=== PATIENT | male | born 1960 | race Caucasian/White ===

== ENCOUNTER 2020-08-04 11:47 | Inpatient (IN) | payer OTHER ==
--- NOTE | 2020-08-04 12:02 | BHS.RME ---
Substance Use & Tx History - Substance Use History Alcohol Substance amount: 6 beers Frequency of use: Daily Substance route: Oral Date of Last Use: 08/04/20 Physical/Psych/Mental Status - Behavior Eye Contact: Normal - Cooperativeness Cooperativeness: Cooperative - Thinking Thought Processes: Tight, Logical, Goal Directed - Physical Health Problems Is patient presently having any pain?: No Does patient presently have any injuries (include location): No Does patient currently have a fever: No Is patient : No CIWA Nausea/Vomitin-No Nausea/No Vomiting Muscle Tremors: 1-None Visible, but [place] Anxiety: 0-No Anxiety, at Ease Agitation: 0-Normal Activity Paroxysmal Sweats: No Perspiration Orientation: 0-Oriented Tacttile Disturbances: 0-None Auditory Disturbances: 0-None Visual Disturbances: 0-None Headache: 0-None Present (not yet in withdrawals....drank this morning 6 beers, AMARILIS=.[id number]) CIWA-Ar Total Score: 1
[2020-08-04] MEDS ORDERED: LORazepam 1 MG TABLET PO PRN (13:28)
[2020-08-04] MEDS ORDERED: NICOTINE POLACRILEX 2 MG GUM BUC PRN (13:28)
[2020-08-04] MEDS ORDERED: ONDANSETRON *ODT* 4 MG TABLET SL PRN (13:28)
[2020-08-04] MEDS ORDERED: METHOCARBAMOL 500 MG TABLET PO PRN (13:28)
[2020-08-04] MEDS ORDERED: MAGNESIUM HYDROX 2400MG/30ML ORAL SUSPENSION 30 ML CUP PO PRN (13:28)
[2020-08-04] MEDS ORDERED: MAGNESIUM CITRATE 300 ML BOTTLE PO PRN (13:28)
[2020-08-04] MEDS ORDERED: MAG HYDROX/AL HYDROX/SIMETH 30 ML UNIT-DOSE CUP PO PRN (13:28)
[2020-08-04] MEDS ORDERED: MENTHOL/PHENOL 1 EACH UD MM PRN (13:28)
[2020-08-04] MEDS ORDERED: ACETAMINOPHEN 325 MG TABLET (FP) PO PRN ×2 (13:28)
[2020-08-04] MEDS ORDERED: BISMUTH SUBSALICYLATE 262 MG/15 ML BTL PO PRN (13:28)
[2020-08-04] MEDS ORDERED: IBUPROFEN 400 MG TABLET (FP) PO PRN (13:28)
--- NOTE | 2020-08-04 13:28 | HP ---
CIWA Score Nausea/Vomitin-No Nausea/No Vomiting Muscle Tremors: 1-None Visible, but [place] Anxiety: 0-No Anxiety, at Ease Agitation: 0-Normal Activity Paroxysmal Sweats: No Perspiration Orientation: 0-Oriented Tacttile Disturbances: 0-None Auditory Disturbances: 0-None Visual Disturbances: 0-None Headache: 0-None Present (not yet in withdrawals....drank this morning 6 beers, AMARILIS=.[id number]) CIWA-Ar Total Score: 1 - Admission Criteria [facility]ASAS Guidelines: Admission for Medically Managed Detox: Requires at least one of the followin. CIWA greater than 12 2. Seizures within the past 24 hours 3. Delirium tremens within the past 24 hours 4. Hallucinations within the past 24 hours 5. Acute intervention needed for co occurring medical disorder 6. Acute intervention needed for co occurring psychiatric disorder 7. Severe withdrawal that cannot be handled at a lower level of care (continued vomiting, continued diarrhea, abnormal vital signs) requiring intravenous medication and/or fluids 8. Admitting History and Physical - Admission Chief Complaint: Mr. Barbour is a 59 yo gentleman who presents to [facility] requesting admission. He has a history of alcohol use disorder. History of Present Illness: Mr. Barbour is a 59 yo gentleman who presents to [facility] requesting admission. He has a history of alcohol use disorder. Initially he was going to be placed in detox, however, after finding a AMARILIS of 0.101, a detox admission was deemed medically necessary. He initially stated that his last drink was one week ago and then admitted to drinking today. 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 Current level of intoxication obscures withdrawal symptoms. History Source: Patient Limitations to Obtaining History: No Limitations Admission ROS BHS - HPI Allergies/Adverse Reactions: Allergies Allergy/AdvReac Type Severity Reaction Status Date / Time Penicillins Allergy Severe Rash Verified 08/04/20 13:18 Exam Limitations: No Limitations - Ebola screening Have you traveled outside of the country in the last 21 days: No Have you been sick,other than usual withdrawal symptoms: No Do you have a fever: No - Review of Systems Constitutional: No Symptoms Reported EENT: reports: Blurred Vision (glasses to read) Respiratory: reports: No Symptoms reported Cardiac: reports: No Symptoms Reported GI: reports: No Symptoms Reported : reports: No Symptoms Reported Musculoskeletal: reports: Other (right tibial fracture 2 weeks ago, has a posterior mold and chloe wrap. Prior left ankle fracture with hardware, joint is fixed) Integumentary: reports: No Symptoms Reported Neuro: reports: No Symptoms reported Endocrine: reports: No Symptoms Reported Hematology: reports: No Symptoms Reported Psychiatric: reports: No Sypmtoms Reported Patient History - Smoking Cessation Smoking history: Current every day smoker Have you smoked in the past 12 months: Yes Hx Chewing Tobacco Use: No Initiated information on smoking cessation: Yes 'Breaking Loose' booklet given: 08/04/20 Admission Physical Exam [facility] - Vital Signs Vital Signs: BP 113/83, HR 102, RR 12, temp 97.5 UDS: MTD - Physical General Appearance: Yes: No Apparent Distress, Nourished, Appropriately Dressed HEENTM: Yes: EOMI, Hearing grossly Normal, Normocephalic, Normal Voice Respiratory: Yes: Lungs Clear, No Respiratory Distress, No Accessory Muscle Use Neck: Yes: Within Normal Limits, Supple Breast: Yes: Breast Exam Deferred Cardiology: Yes: Regular Rhythm, Regular Rate Abdominal: Yes: Normal Bowel Sounds, Non Tender, Flat, Soft Genitourinary: Yes: Other (deferred) Back: Yes: Normal Inspection Musculoskeletal: Yes: Other (steady with the use of a cane) Extremities: Yes: Normal Inspection (left ankle anterior scar, right leg in posterior mold to knee, wrapped in chloe bandage) Neurological: Yes: Alert, Normal Response Integumentary: Yes: Within Normal Limits - Diagnostic (1) Alcohol intoxication Current Visit: Yes Status: Acute (2) Methadone maintenance therapy patient Current Visit: Yes Status: Acute Cleared for Admission [facility] - Detox or Rehab [facility] Level of Care: Medically Managed Detox Regimen/Protocol: Ativan Breathalyzer - Breathalyzer Breathalyzer: 0.101 Inpatient Rehab Admission - Rehab Decision to Admit Inpatient rehab admission?: No
[2020-08-04] MEDS: METHADONE HCL 40 MG DISPERSABLE TABLET PO SCH (16:02)
[2020-08-04] MEDS: hydrOXYzine PAMOATE 25 MG CAPSULE (FP) PO SCH ×3 (16:02→22:25)
--- NOTE | 2020-08-04 17:10 | EKG ---
Test Reason : Blood Pressure : / mmHG Vent. Rate : 086 BPM Atrial Rate : 086 BPM P-R Int : 146 ms QRS Dur : 084 ms QT Int : 378 ms P-R-T Axes : 077 040 065 degrees QTc Int : 452 ms NORMAL SINUS RHYTHM NORMAL ECG NO PREVIOUS ECGS AVAILABLE Confirmed by MARIAH COCHRAN MD ([id number]) on 08/04/2020 5:10:40 PM Referred By: Confirmed By:MARIAH COCHRAN MD
[2020-08-04] MEDS: LORazepam 2 MG TABLET PO SCH ×2 (17:31→22:25)
[2020-08-04 18:09] LABS: HEMATOCRIT 28.1 % (35.4-49); HEMOGLOBIN 9.4 GM/dL (11.7-16.9); MCH 34.9 pg (25.7-33.7); MCHC 33.6 g/dl (32.0-35.9); MEAN CELL VOLUME 103.8 fl (80-96); MEAN PLT VOLUME 8.1 fl (7.5-11.1); PLATELET COUNT 319 K/MM3 (134-434); RDW 15.2 % (11.9-15.9); WHITE BLOOD COUNT 6.7 K/mm3 (4.0-10.0)
[2020-08-04 18:18] LABS: ALBUMIN 2.9 g/dl (3.4-5.0); BILIRUBIN,TOTAL 0.3 mg/dL (0.2-1); BLOOD UREA NITROGEN 9.4 mg/dL (7-18); CALCIUM 8.2 mg/dL (8.5-10.1); CREATININE 0.9 mg/dL (0.55-1.3); POTASSIUM 4.9 mmol/L (3.5-5.1); TOT PROT 7.1 g/dl (6.4-8.2)
[2020-08-04] MEDS: MELATONIN 5 MG TABLETS PO SCH (22:25)
[2020-08-04] MEDS: THIAMINE HCL 100 MG TABLET (FP) PO SCH (22:25)
[2020-08-05] MEDS: hydrOXYzine PAMOATE 25 MG CAPSULE (FP) PO SCH ×5 (06:12→22:17)
[2020-08-05] MEDS: LORazepam 2 MG TABLET PO SCH ×4 (06:12→22:17)
--- NOTE | 2020-08-05 09:45 | PN ---
S CIWA - CIWA Score Nausea/Vomitin-Mild Nausea/No Vomiting Muscle Tremors: 2 Anxiety: 2 Agitation: 2 Paroxysmal Sweats: 1-Minimal Palms Moist Orientation: 0-Oriented Tacttile Disturbances: 1-Very Mild Itch/Numbness Auditory Disturbances: 0-None Visual Disturbances: 0-None Headache: 2-Mild CIWA-Ar Total Score: 11 S Progress Note (SOAP) Subjective: alert,irritable,anxious,interrupted sleep,tremor,pain in the body and back,poor appetite Objective: 08/05/20 11:23 Vital Signs Temperature 98.2 F 08/05/20 09:08 Pulse Rate 80 08/05/20 09:08 Respiratory Rate 16 08/05/20 09:08 Blood Pressure 100/67 08/05/20 09:08 O2 Sat by Pulse Oximetry (%) 96 08/05/20 06:21 Laboratory Last Values WBC 6.7 K/mm3 (4.0-10.0) 08/04/20 13:35 RBC 2.70 M/mm3 (4.00-5.60) L 08/04/20 13:35 Hgb 9.4 GM/dL (11.7-16.9) L 08/04/20 13:35 Hct 28.1 % (35.4-49) L 08/04/20 13:35 MCV 103.8 fl (80-96) H 08/04/20 13:35 MCH 34.9 pg (25.7-33.7) H 08/04/20 13:35 MCHC 33.6 g/dl (32.0-35.9) 08/04/20 13:35 RDW 15.2 % (11.9-15.9) 08/04/20 13:35 Plt Count 319 K/MM3 (134-434) 08/04/20 13:35 MPV 8.1 fl (7.5-11.1) 08/04/20 13:35 Sodium 134 mmol/L (136-145) L 08/04/20 13:35 Potassium 4.9 mmol/L (3.5-5.1) 08/04/20 13:35 Chloride 100 mmol/L (98-107) 08/04/20 13:35 Carbon Dioxide 26 mmol/L (21-32) 08/04/20 13:35 Anion Gap 8 MMOL/L (8-16) 08/04/20 13:35 BUN 9.4 mg/dL (7-18) 08/04/20 13:35 Creatinine 0.9 mg/dL (0.55-1.3) 08/04/20 13:35 Est GFR (CKD-EPI)AfAm 106.46 08/04/20 13:35 Est GFR (CKD-EPI)NonAf 91.86 08/04/20 13:35 Random Glucose 203 mg/dL (74-106) H 08/04/20 13:35 Calcium 8.2 mg/dL (8.5-10.1) L 08/04/20 13:35 Total Bilirubin 0.3 mg/dL (0.2-1) 08/04/20 13:35 AST 30 U/L (15-37) 08/04/20 13:35 ALT 20 U/L (13-61) 08/04/20 13:35 Alkaline Phosphatase 110 U/L (45-117) 08/04/20 13:35 Total Protein 7.1 g/dl (6.4-8.2) 08/04/20 13:35 Albumin 2.9 g/dl (3.4-5.0) L 08/04/20 13:35 Syphilis Serology Non-reactive (NONREACTIVE) 08/04/20 13:35 Assessment: 08/05/20 11:24 withdrawal symptom Plan: continue detox ativan regimen,initial glucose is 200,fasting glucose in am,bgm monitoring bidac,hba1c,glucerna 1 can po bid
[2020-08-05] MEDS: PRENATAL VITAMINS W/ FOLIC ACID TABLET (FP) PO SCH (10:13)
[2020-08-05] MEDS: METHADONE HCL 40 MG DISPERSABLE TABLET PO SCH (10:13)
[2020-08-05] MEDS: NICOTINE 7 MG/24 HOURS TOPICAL PATCH TD SCH (10:13)
[2020-08-05 18:13] LABS: PH,URINE 6.5 (5.0-8.0); URINE APPEARANCE CLEAR; URINE BILIRUBIN NEGATIVE (NEGATIVE); URINE COLOR YELLOW; URINE GLUCOSE (UA) NEGATIVE (NEGATIVE); URINE KETONE NEGATIVE (NEGATIVE); URINE LEUK ESTERASE NEGATIVE (NEGATIVE); URINE NITRITE NEGATIVE (NEGATIVE); URINE PROTEIN NEGATIVE (NEGATIVE); URINE UROBILINOGEN 0.2 mg/dL (0.2-1.0)
--- NOTE | 2020-08-05 18:36 | DS ---
[facility] Detox Discharge Summary Admission Date: 08/04/20 - Physical Exam Results Vital Signs: Vital Signs Temperature 98.5 F 08/05/20 16:40 Pulse Rate 81 08/05/20 16:40 Respiratory Rate 19 08/05/20 16:40 Blood Pressure 112/72 08/05/20 16:40 O2 Sat by Pulse Oximetry (%) 98 08/05/20 16:40 - Medication Discharge Medications: Ambulatory Orders Methadone [Dolophine -] 40 mg PO DAILY 08/03/20
[2020-08-05] MEDS: THIAMINE HCL 100 MG TABLET (FP) PO SCH (22:17)
[2020-08-05] MEDS: MELATONIN 5 MG TABLETS PO SCH (22:17)
[2020-08-06] MEDS: LORazepam 1 MG TABLET PO SCH ×4 (06:40→22:29)
[2020-08-06] MEDS: hydrOXYzine PAMOATE 25 MG CAPSULE (FP) PO SCH ×5 (06:40→22:29)
[2020-08-06] MEDS: METHADONE HCL 40 MG DISPERSABLE TABLET PO SCH (10:09)
[2020-08-06] MEDS: PRENATAL VITAMINS W/ FOLIC ACID TABLET (FP) PO SCH (10:09)
[2020-08-06] MEDS: NICOTINE 7 MG/24 HOURS TOPICAL PATCH TD SCH (10:10)
--- NOTE | 2020-08-06 10:31 | PN ---
[facility] CIWA - CIWA Score Nausea/Vomitin-Mild Nausea/No Vomiting Muscle Tremors: 2 Anxiety: 2 Agitation: 1-Slight > Activity Paroxysmal Sweats: No Perspiration Orientation: 0-Oriented Tacttile Disturbances: 1-Very Mild Itch/Numbness Auditory Disturbances: 0-None Visual Disturbances: 0-None Headache: 1-Very Mild CIWA-Ar Total Score: 8 BHS Progress Note (SOAP) Subjective: alert,irritable,anxious,interrupted sleep,aching pain Objective: 08/06/20 15:21 Vital Signs Temperature 97.7 F 08/06/20 12:40 Pulse Rate 106 H 08/06/20 12:40 Respiratory Rate 18 08/06/20 12:40 Blood Pressure 100/67 08/06/20 12:40 O2 Sat by Pulse Oximetry (%) 95 08/06/20 12:40 Laboratory Last Values WBC 6.2 K/mm3 (4.0-10.0) 08/06/20 07:00 RBC 2.87 M/mm3 (4.00-5.60) L 08/06/20 07:00 Hgb 9.6 GM/dL (11.7-16.9) L 08/06/20 07:00 Hct 29.3 % (35.4-49) L 08/06/20 07:00 MCV 102.0 fl (80-96) H 08/06/20 07:00 MCH 33.5 pg (25.7-33.7) 08/06/20 07:00 MCHC 32.8 g/dl (32.0-35.9) 08/06/20 07:00 RDW 15.4 % (11.9-15.9) 08/06/20 07:00 Plt Count 299 K/MM3 (134-434) 08/06/20 07:00 MPV 8.4 fl (7.5-11.1) 08/06/20 07:00 Sodium 137 mmol/L (136-145) 08/06/20 07:00 Potassium 4.3 mmol/L (3.5-5.1) 08/06/20 07:00 Chloride 101 mmol/L (98-107) 08/06/20 07:00 Carbon Dioxide 30 mmol/L (21-32) 08/06/20 07:00 Anion Gap 7 MMOL/L (8-16) L 08/06/20 07:00 BUN 11.7 mg/dL (7-18) 08/06/20 07:00 Creatinine 0.8 mg/dL (0.55-1.3) 08/06/20 07:00 Est GFR (CKD-EPI)AfAm 111.74 08/06/20 07:00 Est GFR (CKD-EPI)NonAf 96.41 08/06/20 07:00 POC Glucometer 116 UNITS (80-120) 08/05/20 16:26 Random Glucose 133 mg/dL (74-106) H 08/06/20 07:00 Fasting Glucose 134 mg/dL (74-106) H 08/06/20 07:00 Hemoglobin A1c % 4.9 % (4.2-6.3) 08/06/20 07:00 Calcium 8.2 mg/dL (8.5-10.1) L 08/06/20 07:00 Total Bilirubin 0.3 mg/dL (0.2-1) 08/04/20 13:35 AST 30 U/L (15-37) 08/04/20 13:35 ALT 20 U/L (13-61) 08/04/20 13:35 Alkaline Phosphatase 110 U/L (45-117) 08/04/20 13:35 Total Protein 7.1 g/dl (6.4-8.2) 08/04/20 13:35 Albumin 2.9 g/dl (3.4-5.0) L 08/04/20 13:35 Urine Color Yellow 08/05/20 15:20 Urine Appearance Clear 08/05/20 15:20 Urine pH 6.5 (5.0-8.0) 08/05/20 15:20 Ur Specific [place] 1.014 (1.010-1.035) 08/05/20 15:20 Urine Protein Negative (NEGATIVE) 08/05/20 15:20 Urine Glucose (UA) Negative (NEGATIVE) 08/05/20 15:20 Urine Ketones Negative (NEGATIVE) 08/05/20 15:20 Urine Blood Negative (NEGATIVE) 08/05/20 15:20 Urine Nitrite Negative (NEGATIVE) 08/05/20 15:20 Urine Bilirubin Negative (NEGATIVE) 08/05/20 15:20 Urine Urobilinogen 0.2 mg/dL (0.2-1.0) 08/05/20 15:20 Ur Leukocyte Esterase Negative (NEGATIVE) 08/05/20 15:20 Syphilis Serology Non-reactive (NONREACTIVE) 08/04/20 13:35 COVID-19 (LUIZA) Not detected (Not Detected) 08/04/20 15:30 HIV Ag/Ab Combo Qual Negative (NEGATIVE) 08/04/20 07:00 Assessment: 08/06/20 15:22 withdrawal symptom,new onset of diabetes mellitus anemia Plan: continue detox ativan regimen,ferrous sulfate 325 mgs po bid for anemia, ncs,glucerna 1 can po bid,auto brake mechanic consultation
[2020-08-06 10:47] LABS: HEMATOCRIT 29.3 % (35.4-49); HEMOGLOBIN 9.6 GM/dL (11.7-16.9); MCH 33.5 pg (25.7-33.7); MCHC 32.8 g/dl (32.0-35.9); MEAN PLT VOLUME 8.4 fl (7.5-11.1); PLATELET COUNT 299 K/MM3 (134-434); RBC 2.87 M/mm3 (4.00-5.60); RDW 15.4 % (11.9-15.9); WHITE BLOOD COUNT 6.2 K/mm3 (4.0-10.0)
[2020-08-06 11:26] LABS: BLOOD UREA NITROGEN 11.7 mg/dL (7-18); CALCIUM 8.2 mg/dL (8.5-10.1); CREATININE 0.8 mg/dL (0.55-1.3); POTASSIUM 4.3 mmol/L (3.5-5.1)
[2020-08-06] MEDS: FERROUS SO4 325 MG TABLET (FP) PO SCH (22:29)
[2020-08-06] MEDS: THIAMINE HCL 100 MG TABLET (FP) PO SCH (22:29)
[2020-08-06] MEDS: MELATONIN 5 MG TABLETS PO SCH (22:29)
[2020-08-07] MEDS ORDERED: LORazepam 0.5 MG TABLET PO PRN
[2020-08-07] MEDS: LORazepam 0.5 MG TABLET PO SCH ×4 (06:55→22:31)
[2020-08-07] MEDS: hydrOXYzine PAMOATE 25 MG CAPSULE (FP) PO SCH ×5 (06:55→22:31)
[2020-08-07] MEDS: FERROUS SO4 325 MG TABLET (FP) PO SCH ×2 (10:22→22:31)
[2020-08-07] MEDS: PRENATAL VITAMINS W/ FOLIC ACID TABLET (FP) PO SCH (10:22)
[2020-08-07] MEDS: METHADONE HCL 40 MG DISPERSABLE TABLET PO SCH (10:22)
[2020-08-07] MEDS: NICOTINE 7 MG/24 HOURS TOPICAL PATCH TD SCH (10:23)
--- NOTE | 2020-08-07 13:23 | PN ---
S CIWA - CIWA Score Nausea/Vomitin-Mild Nausea/No Vomiting Muscle Tremors: 2 Anxiety: 2 Agitation: 1-Slight > Activity Paroxysmal Sweats: No Perspiration Orientation: 0-Oriented Tacttile Disturbances: 0-None Auditory Disturbances: 0-None Visual Disturbances: 0-None Headache: 1-Very Mild CIWA-Ar Total Score: 7 BHS Progress Note (SOAP) Subjective: alert,irritable,anxious,interrupted sleep,aching pain Objective: 08/07/20 16:28 Vital Signs Temperature 97.1 F L 08/07/20 12:42 Pulse Rate 114 H 08/07/20 12:42 Respiratory Rate 20 08/07/20 12:42 Blood Pressure 101/63 08/07/20 12:42 O2 Sat by Pulse Oximetry (%) 96 08/07/20 12:42 08/07/20 16:28 Laboratory Results - last 24 hr 08/06/20 08/07/20 16:28 05:47 POC Glucometer 107 103 Assessment: 08/07/20 16:29 withdrawal symptom Plan: continue detox ativan regimen,mmtp 40 mgs po daily maintenance,life style diet modification advise,bgm monitoring,discharge in am
[2020-08-07] MEDS: MELATONIN 5 MG TABLETS PO SCH (22:31)
[2020-08-07] MEDS: THIAMINE HCL 100 MG TABLET (FP) PO SCH (22:31)
[2020-08-08] MEDS ORDERED: LORazepam 0.5 MG TABLET PO ONE (05:00)
[2020-08-08] MEDS: hydrOXYzine PAMOATE 25 MG CAPSULE (FP) PO SCH (05:15)
--- NOTE | 2020-08-08 08:57 | PN ---
[facility] CIWA - CIWA Score Nausea/Vomitin-No Nausea/No Vomiting Muscle Tremors: None Anxiety: 1-Mildly Anxious Agitation: 0-Normal Activity Paroxysmal Sweats: No Perspiration Orientation: 0-Oriented Tacttile Disturbances: 0-None Auditory Disturbances: 0-None Visual Disturbances: 0-None Headache: 0-None Present CIWA-Ar Total Score: 1 S Progress Note (SOAP) Subjective: alert,no complaint Objective: 08/08/20 09:48 Vital Signs Temperature 98.4 F 08/08/20 08:40 Pulse Rate 99 H 08/08/20 08:40 Respiratory Rate 18 08/08/20 08:40 Blood Pressure 103/65 08/08/20 08:40 O2 Sat by Pulse Oximetry (%) 96 08/08/20 06:41 08/08/20 09:48 glucose 100 Assessment: 08/08/20 09:48 detox completed,no withdrawal symptom Plan: stable for discharge today,declined rehab,follow up with methadone clinic
--- NOTE | 2020-08-08 08:57 | DS ---
[facility] Detox Discharge Summary Admission Date: 08/04/20 Discharge Date: 08/08/20 - History Present History: Alcohol Dependence, MMTP Additional Comments: alert,oriented x 3 ambulation on the unit lung clear on auscultation bilaterally abdomen soft,no pain,no tenderness no edema of the legs detox completed,no withdrawal symptom discharge today decline rehab follow up with [facility] methadone maintenance clinic left the unit in stable condition ad vise life style chnge on diet no concentrated sweet - Physical Exam Results Vital Signs: Vital Signs Temperature 97.6 F 08/08/20 06:41 Pulse Rate 87 08/08/20 06:41 Respiratory Rate 18 08/08/20 06:41 Blood Pressure 111/63 08/08/20 06:41 O2 Sat by Pulse Oximetry (%) 96 08/08/20 06:41 Pertinent Admission Physical Exam Findings: Laboratory Last Values WBC 6.2 K/mm3 (4.0-10.0) 08/06/20 07:00 RBC 2.87 M/mm3 (4.00-5.60) L 08/06/20 07:00 Hgb 9.6 GM/dL (11.7-16.9) L 08/06/20 07:00 Hct 29.3 % (35.4-49) L 08/06/20 07:00 MCV 102.0 fl (80-96) H 08/06/20 07:00 MCH 33.5 pg (25.7-33.7) 08/06/20 07:00 MCHC 32.8 g/dl (32.0-35.9) 08/06/20 07:00 RDW 15.4 % (11.9-15.9) 08/06/20 07:00 Plt Count 299 K/MM3 (134-434) 08/06/20 07:00 MPV 8.4 fl (7.5-11.1) 08/06/20 07:00 Sodium 137 mmol/L (136-145) 08/06/20 07:00 Potassium 4.3 mmol/L (3.5-5.1) 08/06/20 07:00 Chloride 101 mmol/L (98-107) 08/06/20 07:00 Carbon Dioxide 30 mmol/L (21-32) 08/06/20 07:00 Anion Gap 7 MMOL/L (8-16) L 10/07/20 07:00 BUN 11.7 mg/dL (7-18) 08/06/20 07:00 Creatinine 0.8 mg/dL (0.55-1.3) 08/06/20 07:00 Est GFR (CKD-EPI)AfAm 111.74 08/06/20 07:00 Est GFR (CKD-EPI)NonAf 96.41 08/06/20 07:00 POC Glucometer 100 UNITS (80-120) 08/08/20 06:49 Random Glucose 133 mg/dL (74-106) H 08/06/20 07:00 Fasting Glucose 134 mg/dL (74-106) H 08/06/20 07:00 Hemoglobin A1c % 4.9 % (4.2-6.3) 08/06/20 07:00 Calcium 8.2 mg/dL (8.5-10.1) L 08/06/20 07:00 Total Bilirubin 0.3 mg/dL (0.2-1) 08/04/20 13:35 AST 30 U/L (15-37) 08/04/20 13:35 ALT 20 U/L (13-61) 08/04/20 13:35 Alkaline Phosphatase 110 U/L (45-117) 08/04/20 13:35 Total Protein 7.1 g/dl (6.4-8.2) 08/04/20 13:35 Albumin 2.9 g/dl (3.4-5.0) L 08/04/20 13:35 Urine Color Yellow 08/05/20 15:20 Urine Appearance Clear 08/05/20 15:20 Urine pH 6.5 (5.0-8.0) 08/05/20 15:20 Ur Specific [place] 1.014 (1.010-1.035) 08/05/20 15:20 Urine Protein Negative (NEGATIVE) 08/05/20 15:20 Urine Glucose (UA) Negative (NEGATIVE) 08/05/20 15:20 Urine Ketones Negative (NEGATIVE) 08/05/20 15:20 Urine Blood Negative (NEGATIVE) 08/05/20 15:20 Urine Nitrite Negative (NEGATIVE) 08/05/20 15:20 Urine Bilirubin Negative (NEGATIVE) 08/05/20 15:20 Urine Urobilinogen 0.2 mg/dL (0.2-1.0) 08/05/20 15:20 Ur Leukocyte Esterase Negative (NEGATIVE) 08/05/20 15:20 Syphilis Serology Non-reactive (NONREACTIVE) 08/04/20 13:35 COVID-19 (LUIZA) Not detected (Not Detected) 08/04/20 15:30 HIV Ag/Ab Combo Qual Negative (NEGATIVE) 08/04/20 07:00 Vital Signs Temperature 98.4 F 08/08/20 08:40 Pulse Rate 99 H 08/08/20 08:40 Respiratory Rate 18 08/08/20 08:40 Blood Pressure 103/65 08/08/20 08:40 O2 Sat by Pulse Oximetry (%) 96 08/08/20 06:41 - Treatment Hospital Course: Detox Protocol Followed, Detoxed Safely, Responded well, Discharged Condition Good Patient has Accepted a Rehab Referral to: declined - Medication Discharge Medications: Ambulatory Orders Methadone [Dolophine -] 40 mg PO DAILY 08/03/20 - Diagnosis (1) Alcohol dependence with uncomplicated withdrawal Current Visit: Yes Status: Acute (2) Alcohol intoxication Current Visit: Yes Status: Acute (3) Methadone maintenance therapy patient Current Visit: Yes Status: Acute (4) Hyperglycemia Current Visit: Yes Status: Acute - AMA Did Patient Leave Against Medical Advice: No
[2020-08-08 09:28] VITALS: BP 103/65; PULSE 99; TEMP 98.4
--- NOTE | 2020-08-08 09:59 | PN ---
[facility] Progress Note Note: addendum patient is anemic on ferrous sulfate 325 mgs po bid,e prescription to [facility]
== END 2020-08-08 09:45 | disposition home or self-care (01) | DRG 897 ==
LOC: YASAS 11:47 → Y3N 14:08
PROVIDERS: ADMIT Allergy & Immunology; ATTEND Allergy & Immunology
PROC: HZ2ZZZZ Detoxification Services for Substance Abuse Treatment (ICD-10-PCS; principal; 2020-08-04)
DX: F10.230 Alcohol dependence with withdrawal, uncomplicated (principal); F11.20 Opioid dependence, uncomplicated; F10.220 Alcohol dependence with intoxication, uncomplicated; F17.210 Nicotine dependence, cigarettes, uncomplicated; D64.9 Anemia, unspecified; E11.9 Type 2 diabetes mellitus without complications; Z99.89 Dependence on other enabling machines and devices; S82.201D Unspecified fracture of shaft of right tibia, subsequent encounter for closed fracture with routine healing; X58.XXXD Exposure to other specified factors, subsequent encounter; Z88.0 Allergy status to penicillin
CPT/HCPCS: 36415; 80048; 80053; 81003; 82947; 82962; 83036; 85027; 86780; 87389; 93005; 93010; C9803; U0003